=== PATIENT | female | born 1970 | race Two or more races ===

== ENCOUNTER 2017-11-12 16:37 | Emergency (ER) | payer SELFPAY ==
[2017-11-12 16:47] VITALS: BMI 26.6
--- NOTE | 2017-11-12 17:58 | DR.GENAD ---
HPI - PCP Primary Care Physician: none - Complaint/Symptoms Chief Complaint Doctors Comments: Patient denies trauma or history of cardiopulmonary disease. She is left handed Chief Complaint:: left side of chest hurts started three days ago just around left breast - Source History Provided: Patient - Mode of Arrival Mode of Arrival: Ambulatory - Timing Onset of Chief Complaint: 11/09/17 PMH - PMH Past Medical History: No Past Surgical History: Yes Surgical History: , Hysterectomy - Family History History of Family Medical Conditions: No - Social History Does patient currently use any type of tobacco product: No Have you used tobacco products in the last 12 months: No Type of Tobacco Use: None Does any household member use tobacco: No Alcohol Use: None Do you use any recreational Drugs:: No Lives With: Family Lives Where: Home - infectious screening In the last 2 months have you had wt loss of >10#?: NO Have you had fever, night sweats or hemotysis?: No Have you traveled outside the country in the last 6 months?: No Isolation: Standard ROS - Review of Systems Eyes: No Symptoms Reported, Eye Pain Respiratoy: No Symptoms Reported Cardiovascular: No Symptoms Reported Gastrointestinal/Abdominal: No Symptoms Reported Genitourinary: No Symptoms Reported Neurological: No Symptoms Reported Musculoskeletal: No Symptoms Reported Integumentary: No Symptoms Reported Hematologic/Lymphatic: No Symptoms Reported Endocrine: No Symptoms Reported Psychiatric: No Symptoms Reported All Other Systems: Reviewed and Negative PE - Vital Signs Vitals: Temperature 97.4 F Pulse Rate 70 Respiratory Rate 18 Blood Pressure 136/65 O2 Sat by Pulse Oximetry 99 - General Limitations: No Limitations General Appearance: Alert - Head Head Exam: Normal Inspection, Atraumatic - ENT ENT Exam: Normal Exam, Normal Oropharynx External Ear Exam: Normal External Inspection TM/Canal Exam: Bilateral Normal Nose Exam: Normal Nose Exam, Sinus Tenderness Mouth Exam: Normal Inspection, Drooling Throat Exam: Normal Inspection - Neck Neck Exam: Normal Inspection, Full ROM - Chest Chest Inspection: Normal Inspection, Symmetric Chest Wall Rise - Respiratory Respiratory Exam: Normal Lung Sounds Bilat Respiratory Exam: Bilateral Clear to Auscultation - Cardiovascular Cardiovascular Exam: Regular Rate - Abdominal Exam Abdominal Exam: Normal Inspection, Normal Bowel Sounds Abdominal Tenderness: negative: RUQ, RLQ, LUQ, LLQ, Epigastrium, Suprapubic, Diffuse, Mild, Moderate, Severe, Other - Extremities Extremities Exam: Normal Inspection, Full ROM - Back Back Exam: Normal Inspection, Full ROM - Neurologic Neurological Exam: Alert, Oriented X3, CN II-XII Intact - Psychiatric Psychiatric Exam: Normal Affect, Normal Mood - Skin Skin Exam: Warm, Dry, Intact Course - Education/Counseling Educated On: Treatment, Diagnosis, Prognosis, Needs for Follow Up ROR - Labs Reviewed Result Diagrams: 11/12/17 18:09 11/12/17 18:09 Laboratory: WBC 7.0 X10^3/uL (3.6-10.0) 11/12/17 18:09 RBC 4.33 X10^6/uL (3.5-5.4) 11/12/17 18:09 Hgb 13.5 g/dL (12.0-16.0) 11/12/17 18: Hct 38.3 % (36.0-47.0) 11/12/17 18: MCV 88.3 fL (80.0-100.0) 11/12/17 18: MCH 31.1 pg (27.0-34.0) 11/12/17 18: MCHC 35.2 g/dL (33.0-35.0) H 11/12/17 18:09 RDW 13.5 % (11.6-16.5) 11/12/17 18:09 Plt Count 246 X10^3/uL (150.0-450.0) 11/12/17 18:09 MPV 8.6 fL (7.4-11.0) 11/12/17 18: Neut % (Auto) 56.8 % (42.0-75.0) 11/12/17 18: Lymph % (Auto) 32.4 % (21.0-51.0) 11/12/17 18:09 Vermilion % (Auto) 8.7 % (0.0-13.0) 11/12/17 18:09 Eos % (Auto) 1.5 % (0.9-2.9) 11/12/17 18:09 Baso % (Auto) 0.6 % (0.2-1.0) 11/12/17 18:09 Neut # (Auto) 4.0 x10^3/uL (2.2-4.8) 05/25/18 18:09 Lymph # (Auto) 2.3 X10^3/uL (1.3-2.9) 11/12/17 18:09 Vermilion # (Auto) 0.6 x10^3/uL (0.3-0.8) 11/12/17 18:09 Eos # (Auto) 0.1 x10^3/uL (0.0-0.2) 11/12/17 18:09 Baso # (Auto) 0.0 X10^3/uL (0.0-0.1) 11/12/17 18:09 Absolute Nucleated RBC 0.0 /100WBC 11/12/17 18:09 Sodium 141 mmol/L (136-145) 11/12/17 18:09 Corrected Sodium TNP 11/12/17 18:09 Potassium 4.3 mmol/L (3.5-5.1) 11/12/17 18:09 Chloride 105 mmol/L (98-107) 11/12/17 18:09 Carbon Dioxide 29.6 mmol/L (21-32) 11/12/17 18:09 BUN 14 mg/dL (7-18) 11/12/17 18:09 Creatinine 0.91 mg/dL (0.55-1.02) 11/12/17 18:09 Est GFR (MDRD) Af Amer > 60 (>60) 11/12/17 18:09 Est GFR (MDRD) Non-Af > 60 (>60) 11/12/17 18:09 Glucose 96 mg/dL (65-99) 11/12/17 18:09 Calcium 8.1 mg/dL (8.5-10.1) L 11/12/17 18:09 Corrected Calcium TNP 11/12/17 18:09 Total Bilirubin 0.60 mg/dL (0.2-1.0) 11/12/17 18:09 AST 54 Units/L (15-37) H 11/12/17 18:09 ALT 79 Units/L (12-78) H 11/12/17 18:09 Alkaline Phosphatase 121 Units/L (46-116) H 11/12/17 18:09 C-Reactive Protein 0.60 mg/L (0-3.0) 11/12/17 18:09 Total Protein 7.9 g/dL (6.4-8.2) 11/12/17 18:09 Albumin 4.0 g/dL (3.4-5.0) 11/12/17 18:09 Globulin 3.9 g/dL (2.5-4.5) 11/12/17 18:09 Albumin/Globulin Ratio 1.0 Ratio (1.1-2.1) L 11/12/17 18:09 - XRAY XRAY Interpreted by: Radiologist (Chest: heart size and pulmonary vasculature are normal. Lungs are clear wtih no infiltrate or significant effusion on eigher side. Bony thorax is unremarkable as well. Impression: no acute cardiopulmonary abnormality is seen on this exam) - Diagnosis Discharge Problem: Breast pain, left - Discharge Plan Condition: Stable - Follow ups/Referrals Follow ups/Referrals: [facility],None [Primary Care Provider] - 3 days - Instructions
[2017-11-12 18:18] LABS: BASOPHILS % (AUTO) 0.6 % (0.2-1.0); EOSINOPHILS # (AUTO) 0.1 x10^3/uL (0.0-0.2); EOSINOPHILS % (AUTO) 1.5 % (0.9-2.9); HEMATOCRIT 38.3 % (36.0-47.0); HEMOGLOBIN 13.5 g/dL (12.0-16.0); LYMPHOCYTES # (AUTO) 2.3 X10^3/uL (1.3-2.9); LYMPHOCYTES % (AUTO) 32.4 % (21.0-51.0); MEAN CORPUSCULAR HEMOGLOBIN 31.1 pg (27.0-34.0); MEAN CORPUSCULAR HGB CONC 35.2 g/dL (33.0-35.0); MEAN CORPUSCULAR VOLUME 88.3 fL (80.0-100.0); MEAN PLATELET VOLUME 8.6 fL (7.4-11.0); MONOCYTES # (AUTO) 0.6 x10^3/uL (0.3-0.8); MONOCYTES % (AUTO) 8.7 % (0.0-13.0); NEUTROPHILS % (AUTO) 56.8 % (42.0-75.0); PLATELET COUNT 246 X10^3/uL (150.0-450.0); RED BLOOD COUNT 4.33 X10^6/uL (3.5-5.4); RED CELL DISTRIBUTION WIDTH 13.5 % (11.6-16.5)
[2017-11-12 18:29] LABS: ALANINE AMINOTRANSFERASE 79 Units/L (12-78); ALKALINE PHOSPHATASE 121 Units/L (46-116); ASPARTATE AMINO TRANSFERASE 54 Units/L (15-37); BLOOD UREA NITROGEN 14 mg/dL (7-18); CALCIUM 8.1 mg/dL (8.5-10.1); CARBON DIOXIDE 29.6 mmol/L (21-32); CHLORIDE 105 mmol/L (98-107); CREATININE 0.91 mg/dL (0.55-1.02); SODIUM 141 mmol/L (136-145); TOTAL PROTEIN 7.9 g/dL (6.4-8.2); eGFR BLACK RACES > 60 (>60); eGFR NON BLACK RACES > 60 (>60)
--- NOTE | 2017-11-12 19:36 | RAD ---
Exam: Chest two views History: 46-year-old female with left-sided chest pain. Comparison: None Findings: Heart size and pulmonary vasculature are normal. Lungs are clear with no infiltrate or significant ef fusion on either side. Bony thorax is unremarkable as well. Impression: No acute cardiopulmonary abnormality is seen on this exam. Reported By:
[2017-11-12 20:01] VITALS: BP 132/74
== END 2017-11-12 20:01 | disposition home or self-care (01) ==
LOC: ER 16:51
DX: N64.4 Mastodynia (principal)
CPT/HCPCS: 36415; 71046; 80053; 85025; 86140; 93005; 93010; 99283